=== PATIENT | female | born 1955 | race Caucasian/White ===

== ENCOUNTER → 2017-05-26 | Outpatient (CLI) | payer MEDICARE, MEDICAID ==
[~2017-05-26] MED LIST: ALL100T PO; ASPI-231 PO; BUME1TAB PO; CALC-440 PO; ETAN50IN5 SUBCUT; FOLI400T34 PO; FURO40TA PO; HYDR-4072 PO; INSLANTI SC; INSUINJ18 SC; LEUC5TAB PO; METH2.5T3 PO; METO25TA5 PO; NYST1POW12 XX; POTA20TA53 PO
[2017-05-26 09:53] LABS: Basophils # (auto) 0.1 uL; Basophils % (auto) 1.2 % (0.0-2.0); Eosinophils # (auto) 0.1 uL; Eosinophils % (auto) 2.6 % (0.0-7.0); Hematocrit 38.4 % (36.0-46.0); Hemoglobin 12.4 g/dL (12.2-16.2); Lymphocytes # (auto) 1.4 uL; Lymphocytes % (auto) 25.2 % (10.0-50.0); Mean Corpuscular Hemoglobin 29.6 pg (28.0-32.0); Mean Corpuscular Hgb Conc. 32.4 g/dL (32.0-36.0); Mean Corpuscular Volume 91.4 fL (80.0-100.0); Monocytes # (auto) 0.6 uL; Monocytes % (auto) 10.4 % (0.0-12.0); Neutrophils # (auto) 3.4 uL; Neutrophils % (auto) 60.6 % (37.0-80.0); Nucleated Red Blood Cells % 0.2 %; Platelet Count (auto) 196 10^3/uL (140-450); Red Cell Distribution Width 16.5 % (11.8-14.3); White Blood Cell 5.6 10^3/uL (4.4-10.8)
[2017-05-26 10:20] LABS: Albumin 3.1 g/dL (3.4-5.0); BUN/Creatinine Ratio 12.8; Bilirubin, Total 0.5 mg/dL (0.2-1.0); Calcium 8.5 mg/dL (8.5-10.1); Potassium 3.7 mmol/L (3.5-5.1); Total Protein 7.4 g/dL (6.4-8.2)
== END | disposition home or self-care (01) ==
LOC: LAB 09:34
DX: I10 Essential (primary) hypertension (principal); I70.0 Atherosclerosis of aorta; M06.9 Rheumatoid arthritis, unspecified; D64.9 Anemia, unspecified; E78.00 Pure hypercholesterolemia, unspecified
CPT/HCPCS: 36415; 80053; 85025; 85652; 86141

== ENCOUNTER 2018-05-10 08:30 | Emergency (ER) | payer MEDICARE, MEDICAID ==
[~2018-05-10] VITALS: Ht 157.5 cm; Wt 158.8 kg
[2018-05-10 09:26] LABS: Basophils # (auto) 0.1 uL; Basophils % (auto) 1.3 % (0.0-2.0); Eosinophils # (auto) 0.2 uL; Eosinophils % (auto) 2.9 % (0.0-7.0); Hematocrit 39.9 % (36.0-46.0); Hemoglobin 13.2 g/dL (12.2-16.2); Lymphocytes # (auto) 1.9 uL; Lymphocytes % (auto) 30.8 % (10.0-50.0); Mean Corpuscular Hemoglobin 31.3 pg (28.0-32.0); Mean Corpuscular Volume 94.7 fL (80.0-100.0); Monocytes # (auto) 0.6 uL; Monocytes % (auto) 9.2 % (0.0-12.0); Neutrophils # (auto) 3.4 uL; Neutrophils % (auto) 55.8 % (37.0-80.0); Platelet Count (auto) 186 10^3/uL (140-450); Red Blood Cells 4.21 10^6/uL (4.0-5.20); Red Cell Distribution Width 15.4 % (11.8-14.3); White Blood Cell 6.2 10^3/uL (4.4-10.8)
[2018-05-10 09:48] LABS: Alanine Aminotransferase 23 U/L (13-56); Albumin 2.9 g/dL (3.4-5.0); Anion Gap 13 (5-15); Aspartate Aminotransferase 20 U/L (15-37); BUN/Creatinine Ratio 21.4; Blood Urea Nitrogen 22 mg/dL (7-18); Calcium 8.4 mg/dL (8.5-10.1); Carbon Dioxide 26 mmol/L (21-32); Chloride 101 mmol/L (98-107); GFR African American 70 mL/min; GFR Non-African American 58 mL/min; Glucose 128 mg/dL (74-106); Magnesium 1.8 mg/dL (1.6-2.6); Potassium 3.5 mmol/L (3.5-5.1); Sodium 140 mmol/L (136-145)
[2018-05-10 09:53] LABS: Alkaline Phosphatase 118 U/L (45-117); Bilirubin, Total 0.9 mg/dL (0.2-1.0); Total Protein 6.8 g/dL (6.4-8.2)
[2018-05-10] MEDS ORDERED: LORazepam 2MG/ML-1ML VIAL IV ONE (12:00)
[2018-05-10 12:39] LABS: Urine Bacteria FEW /hpf (None Seen); Urine Blood Negative /uL (Negative); Urine Specific Gravity 1.028 (1.001-1.035); Urine WBC 3 /hpf (0 - 5)
[2018-05-10 15:42] VITALS: BP 145/86
== END 2018-05-10 16:59 ==
LOC: ER 08:30 → EDBD 08:30 → ER 16:59
DX: E66.01 Morbid (severe) obesity due to excess calories (principal); I89.0 Lymphedema, not elsewhere classified; M06.9 Rheumatoid arthritis, unspecified; M75.02 Adhesive capsulitis of left shoulder; E11.21 Type 2 diabetes mellitus with diabetic nephropathy; I13.0 Hypertensive heart and chronic kidney disease with heart failure and stage 1 through stage 4 chronic kidney disease, or unspecified chronic kidney disease; I50.9 Heart failure, unspecified; N18.9 Chronic kidney disease, unspecified; E11.22 Type 2 diabetes mellitus with diabetic chronic kidney disease; Z90.49 Acquired absence of other specified parts of digestive tract; Z90.710 Acquired absence of both cervix and uterus; Z68.44 Body mass index [BMI] 60.0-69.9, adult
CPT/HCPCS: 36415; 71045; 80053; 81001; 83735; 84484; 85025; 93005; 94761; 96374; 99285; J2060